=== PATIENT | female | born 2000 | race Asian ===

== ENCOUNTER 2021-11-26 15:15 | Emergency (ER) | payer MEDICAID ==
[~2021-11-26] VITALS: Ht 149.9 cm; Wt 45.4 kg
[2021-11-26 16:00] VITALS: BP_SYST 112
--- NOTE | 2021-11-26 16:00 | NUR ---
Pt to [facility] bed 1 with report given to RONEN Quintana who assume care.
--- NOTE | 2021-11-26 16:10 | NUR ---
Pt brought by family ,ambulatory, A&Ox4, pt presents to ER with R ear pain/ discomfort , pt states an ant crawled on R ear this morning and she heard it moving, denies bleeding or other symptoms.
--- NOTE | 2021-11-26 16:15 | NUR ---
Dr [place] evaluating patient at bedside
[2021-11-26 17:32] VITALS: BP_SYST 112
--- NOTE | 2021-11-26 17:33 | NUR ---
Patient given written and verbal discharge instructions and verbalizes understanding. ER MD discussed with patient the results and treatment provided. Patient in stable condition. ID arm band removed. No Rx given. Patient educated on pain management and to follow up with PMD. Pain Scale 0/10 . Opportunity for questions provided and answered. Medication side effect fact sheet provided.
== END 2021-11-26 17:32 | disposition home or self-care (01) ==
LOC: SED 15:15
DX: H61.21 Impacted cerumen, right ear (principal)
CPT/HCPCS: 99282